=== PATIENT | female | born 1990 | race Caucasian/White ===

== ENCOUNTER 2021-03-02 14:20 | Emergency (ER) | payer OTHER ==
[~2021-03-02] VITALS: Ht 165.1 cm; Wt 163.7 kg
[2021-03-02] MEDS ORDERED: LEVOTHYROXINE25 MCG PO (20:04)
[2021-03-02] MEDS ORDERED: LOSARTAN POTASS50 MG PO (20:04)
== END 2021-03-02 20:14 | disposition home or self-care (01) ==
LOC: ER 14:20
DX: I10 Essential (primary) hypertension (principal); R07.89 Other chest pain; E03.8 Other specified hypothyroidism; Z03.818 Encounter for observation for suspected exposure to other biological agents ruled out